=== PATIENT | female | born 1950 | race Caucasian/White ===

== ENCOUNTER 2017-12-11 13:01 | Emergency (ER) | payer MEDICARE ==
[~2017-12-11] VITALS: Ht 167.6 cm; Wt 66.1 kg
[~2017-12-11 13:01] MED LIST: ALBU1AER INH; BENZ100 PO; ESTR0.5T PO; JANU50TA PO; LEVO112T2 PO; METF500 PO; ZITH250T PO; ZOCO40TA PO
[2017-12-11 13:24] VITALS: BP 149/67; PULSE 112; RESP 16; TEMP 99.4; O2SAT 96
[2017-12-11] MEDS ORDERED: VITA2000 PO (13:39)
[2017-12-11] MEDS ORDERED: SIMV20TA PO (13:39)
[2017-12-11] MEDS ORDERED: ESTR.025T TOPICAL (13:39)
[2017-12-11] MEDS ORDERED: METF1000 PO (13:39)
[2017-12-11] MEDS ORDERED: SITA25 PO (13:39)
[2017-12-11] MEDS ORDERED: LEVO25TA4 PO (13:39)
--- NOTE | 2017-12-11 13:42 | PD ---
HPI Chief Complaint: Cold / Flu Symptoms Time Seen by Provider: 13:32 Travel History International Travel<30 days: No Contact w/Intl Traveler<30days: No Traveled to known affect area: No History of Present Illness HPI 67-year-old female that presents to the ED for evaluation of cold-like symptoms. Per patient she's had cold-like symptoms for about 3 days now. Per patient she has a grandson who has been sick for about 10 days now. Per patient she gets bronchitis around this time of the year and this is the 3rd time she had this. She denies any other medical issues. No recent travel. Per patient she didn't got her flu shot this year. Denies any chest pain or SOB. Cough is productive. Congestion noted. No sore throat. Allergies to penicillin and Keflex. PFSH Past Medical History Hx Anticoagulant Therapy: No Cardiovascular Problems: Yes (CHOL) Diabetes: Yes Patient Takes Glucophage: Yes Diminished Hearing: No Thyroid Disease: Yes Tetanus Vaccination: Unknown Influenza Vaccination: Yes ?: Not Past Surgical History Section: Yes Hysterectomy: Yes Other Surgery: Yes (Nose) Social History Alcohol Use: No Tobacco Use: No Substance Use: No Allergies-Medications (Allergen,Severity, Reaction): Coded Allergies: cephalexin (Unverified Allergy, Unknown, Rash, 12/11/17) penicillin G (Unverified Allergy, Unknown, Anaphylaxis, 12/11/17) Reported Meds & Prescriptions Reported Meds & Active Scripts Active Tessalon Perles (Benzonatate) 100 Mg Cap 200 Mg PO TID PRN Prednisone 20 Mg Tab 20 Mg PO BID 5 Days Azithromycin 250 Mg Tab 250 Mg PO DIRECTED Take 2 tabs (500 mg) on day 1 then 1 tab daily x 4 days. Reported Climara Patch 168 HR (Estradiol) 0.025 Mg/24 Hr Patch 1 Patch TOPICAL Q7D Remove old patch and discard when placing a new patch. Vitamin D3 (Cholecalciferol) 2,000 Unit Cap 2,000 Units PO DAILY Levothyroxine (Levothyroxine Sodium) 25 Mcg Tab 25 Mcg PO DAILY Simvastatin 20 Mg Tab 20 Mg PO DAILY Januvia (Sitagliptin Phosphate) 25 Mg Tab 25 Mg PO DAILY Metformin (Metformin HCl) 1,000 Mg Tab 1,000 Mg PO BIDPC Review of Systems Except as stated in HPI: all other systems reviewed are Neg Physical Exam Narrative GENERAL: Well-nourished, well-developed patient in no apparent distress. SKIN: Warm and dry. HEAD: Atraumatic. Normocephalic. EYES: Pupils equal and round reactive to light and accommodation. No scleral icterus. No injection or drainage. ENT: No nasal bleeding or discharge. Mucous membranes pink and moist. TMs are clear with no sign of infection or perforation. No mastoid tenderness. Ear canals are intact bilaterally. No lymphadenopathy. Nostril mucosa is red and moist with clear mucus noted. No sinus tenderness to palpation noted. Tonsils are not enlarged or swollen. No ulvua Deviation. Tongue is midline. NECK: Trachea midline. No JVD. No meningeal signs noted CARDIOVASCULAR: Regular rate and rhythm. RESPIRATORY: No accessory muscle use. Clear to auscultation. Breath sounds equal bilaterally. GASTROINTESTINAL: Abdomen soft, non-tender, nondistended. Hepatic and splenic margins not palpable. MUSCULOSKELETAL: Extremities without clubbing, cyanosis, or edema. No obvious deformities. NEUROLOGICAL: Awake and alert. No obvious cranial nerve deficits. Motor grossly within normal limits. Five out of 5 muscle strength in the arms and legs. Normal speech. PSYCHIATRIC: Appropriate mood and affect; insight and judgment normal. Data Data Last Documented VS Vital Signs Date Time Temp Pulse Resp B/P (MAP) Pulse Ox O2 Delivery O2 Flow Rate FiO2 12/11/17 13:35 16 96 Room Air 12/11/17 13:24 99.4 112 149/67 (94) Orders Orders Ed Discharge Order (12/11/17 13:42) MDM Medical Decision Making Medical Screen Exam Complete: Yes Emergency Medical Condition: Yes Medical Record Reviewed: Yes Differential Diagnosis Bronchitis versus sinusitis versus URI Narrative Course 67-year-old female that presents to the ED for evaluation of cold-like symptoms. Patient was properly examined and was found to have signs and symptoms consistent appears to be bronchitis. No sign of acute medical distress otherwise. Patient will be treated for this with azithromycin, prednisone, Tessalon Perles. Told to take OTC meds as needed. Follow with PCP. See ED worsening symptoms. Diagnosis Primary Impression: Bronchitis Patient Instructions: General Instructions Additional Instructions: Motrin and Tylenol for pain and fever. You can use [id number] antihistamine as well as well as Mucinex as needed for runny nose and congestion. Cough drops for cough as needed. Drink plenty of fluids. Follow-up with PCP. See ED for worsening symptoms. Med/Other Pt SpecificInfo: Prescription(s) given Scripts Benzonatate (Tessalon Perles) 100 Mg Cap 200 MG PO TID Y for COUGH, #15 CAP 0 Refills Prov: Shanel Thomas MD 12/11/17 Prednisone (Prednisone) 20 Mg Tab 20 MG PO BID for 5 Days, #10 TAB 0 Refills Prov: Shanel Thomas MD 12/11/17 Azithromycin (Azithromycin) 250 Mg Tab 250 MG PO DIRECTED for Infection, #6 TAB 0 Refills Take 2 tabs (500 mg) on day 1 then 1 tab daily x 4 days. Prov: Shanel Thomas MD 12/11/17 Disposition: 01 DISCHARGE HOME Condition: Stable Brice Lakhani Dec 11, 2017 13:42
[2017-12-11] MEDS ORDERED: BENZ100 PO (13:44)
[2017-12-11] MEDS ORDERED: PRED20 PO (13:44)
[2017-12-11] MEDS ORDERED: AZIT250T3 PO (13:44)
== END 2017-12-11 14:09 | disposition home or self-care (01) ==
LOC: PHEFT 13:01
DX: J40 Bronchitis, not specified as acute or chronic (principal); E11.9 Type 2 diabetes mellitus without complications; E07.9 Disorder of thyroid, unspecified; E78.00 Pure hypercholesterolemia, unspecified; Z88.0 Allergy status to penicillin; Z79.84 Long term (current) use of oral hypoglycemic drugs
CPT/HCPCS: 99283